=== PATIENT | male | born 1960 | race Caucasian/White ===

== ENCOUNTER 2017-05-22 11:44 | Emergency (ER) | payer MEDICARE ==
[~2017-05-22] VITALS: Ht 175.3 cm; Wt 66.0 kg
[2017-05-22 12:47] VITALS: BP 128/90
== END 2017-05-22 12:57 | disposition home or self-care (01) ==
LOC: EMS 11:46
DX: B35.3 Tinea pedis (principal); N32.81 Overactive bladder; F17.210 Nicotine dependence, cigarettes, uncomplicated; Z59.0 Homelessness
CPT/HCPCS: 99283

== ENCOUNTER 2017-05-22 15:06 | Inpatient (IN) | payer MEDICARE ==
[~2017-05-22] VITALS: Ht 182.9 cm; Wt 65.1 kg
[2017-05-22 15:41] VITALS: BP 133/67
[2017-05-22] MEDS ORDERED: HALOPERIDOL 5 MG TABLET PO PRN (16:00)
[2017-05-22] MEDS ORDERED: ZOLPIDEM TARTRATE 10 MG TABLET PO PRN (16:00)
[2017-05-22] MEDS ORDERED: LORazepam 2 MG TABLET PO PRN (16:00)
[2017-05-22 17:19] VITALS: BP 129/83
[2017-05-22 17:58] VITALS: BP 129/83
[2017-05-22] MEDS ORDERED: ACETAMINOPHEN 325 MG TABLET PO PRN (19:15)
[2017-05-22] MEDS ORDERED: BACITRACIN 28.4 GM OINTMENT TP PRN (19:15)
[2017-05-22] MEDS ORDERED: IBUPROFEN 600 MG TABLET PO PRN (19:15)
[2017-05-22] MEDS ORDERED: HYDROCORTISONE 2.5% 30 GM CREAM TP PRN (19:15)
[2017-05-23 02:21] VITALS: BP 139/68
[2017-05-23 08:37] VITALS: BP 130/75
[2017-05-23 08:54] LABS: BASOPHILS # (AUTO) 0.03 K/uL (0.00-0.20); BASOPHILS % (AUTO) 0.3 % (0.0-2.0); EOSINOPHILS # (AUTO) 0.58 K/uL (0.00-0.70); EOSINOPHILS % (AUTO) 6.35 % (1.0-6.0); HEMATOCRIT 35.8 % (41-53); HEMOGLOBIN 11.9 g/dL (13.5-17.5); LYMPHOCYTES % (AUTO) 10.7 % (22.0-44.0); MEAN CORPUSCULAR HEMOGLOBIN 29.9 pg (26.0-34.0); MEAN CORPUSCULAR HGB CONC 33.1 G/dL (31.0-37.0); MEAN CORPUSCULAR VOLUME 90 fL (80-100); NEUTROPHILS # (AUTO) 6.6 K/uL (1.8-7.7); NEUTROPHILS % (AUTO) 71.7 % (40.0-70.0); PLATELET COUNT (AUTO) 241 K/uL (150-450); RED BLOOD CELL COUNT(AUTO) 3.97 MIL/uL (4.50-5.90); RED CELL DISTRIBUTION WIDTH 14.9 % (11.5-14.5)
[2017-05-23] MEDS ORDERED: PERMETHRIN 5% 60 GM CREAM TP ONE (09:00)
[2017-05-23 09:26] LABS: HEMOGLOBIN A1C 5.9 % (4.5-6.2)
[2017-05-23 09:41] LABS: ALANINE AMINOTRANSFERASE 15 U/L (12-78); ALKALINE PHOSPHATASE 65 U/L (46-116); ANION GAP 4 mmol/L (8-16); ASPARTATE AMINOTRANSFERASE 9 U/L (15-37); BILIRUBIN,TOTAL 0.2 mg/dL (0.1-1.0); CALCIUM, TOTAL 8.5 mg/dL (8.8-10.5); CARBON DIOXIDE 30 mmol/L (22-29); CHLORIDE 106 mmol/L (98-107); CHOL/HDL RATIO 2.9 (4.2-7.3); CHOLESTEROL 135 mg/dL (131-200); CREATININE 0.69 mg/dL (0.60-1.30); GLOMERULAR FILTR. RATE CALC > 60 mL/min (>60); GLUCOSE,RANDOM 103 mg/dL (70-110); HDL CHOLESTEROL 47 mg/dL (40-60); LDL CHOL (CALC.) 80 mg/dL (0-130); POTASSIUM 4.8 mmol/L (3.5-5.1); SODIUM SERUM 140 mmol/L (136-145); THYROID STIMULATING HORMONE 1.43 uIU/mL (0.36-3.74); TOTAL PROTEIN, SERUM 6.4 g/dL (6.4-8.2); TRIGLYCERIDES 42 mg/dL (15-150); UREA NITROGEN, BLOOD 20 mg/dL (7-18)
[2017-05-23] MEDS: CEPHALEXIN MONOHYDRATE 500 MG CAPSULE PO SCH ×3 (13:05→20:31)
[2017-05-23 16:08] VITALS: BP 124/68
[2017-05-23] MEDS: CLOTRIMAZOLE 1% 15 GM CREAM TP SCH (17:10)
[2017-05-24 01:27] VITALS: BP 121/68
[2017-05-24 08:20] VITALS: BP 121/84
[2017-05-24] MEDS: DULoxetine HCL 30 MG CAPSULE PO SCH ×2 (08:56→16:43)
[2017-05-24] MEDS: CEPHALEXIN MONOHYDRATE 500 MG CAPSULE PO SCH ×4 (08:56→20:25)
[2017-05-24] MEDS: CLOTRIMAZOLE 1% 15 GM CREAM TP SCH ×2 (08:57→17:03)
[2017-05-24 09:29] LABS: CREATINE KINASE, TOTAL 41 U/L (39-308); THYROID STIMULATING HORMONE 3.02 uIU/mL (0.36-3.74)
[2017-05-24 10:52] LABS: FOLATE SERUM 15.8 ng/mL (5.4-)
[2017-05-24 16:02] VITALS: BP 141/74
[2017-05-25 05:29] VITALS: BP 125/63
[2017-05-25 08:06] VITALS: BP 114/66
[2017-05-25] MEDS: CLOTRIMAZOLE 1% 15 GM CREAM TP SCH ×2 (08:43→16:12)
[2017-05-25] MEDS: CEPHALEXIN MONOHYDRATE 500 MG CAPSULE PO SCH ×4 (08:43→20:27)
[2017-05-25] MEDS: DULoxetine HCL 30 MG CAPSULE PO SCH ×2 (08:43→16:11)
[2017-05-25 16:04] VITALS: BP 120/67
[2017-05-26 06:14] VITALS: BP 136/66
[2017-05-26 08:19] VITALS: BP 109/72
[2017-05-26] MEDS: DULoxetine HCL 30 MG CAPSULE PO SCH ×2 (08:35→16:34)
[2017-05-26] MEDS: CLOTRIMAZOLE 1% 15 GM CREAM TP SCH ×2 (08:36→16:34)
[2017-05-26] MEDS: CEPHALEXIN MONOHYDRATE 500 MG CAPSULE PO SCH ×4 (08:36→20:58)
[2017-05-26 16:00] VITALS: BP 125/62
[2017-05-27 06:07] VITALS: BP 124/81
[2017-05-27 08:06] VITALS: BP 116/62
[2017-05-27] MEDS: DULoxetine HCL 30 MG CAPSULE PO SCH (08:21)
[2017-05-27] MEDS: CEPHALEXIN MONOHYDRATE 500 MG CAPSULE PO SCH ×2 (08:21→13:07)
[2017-05-27] MEDS: CLOTRIMAZOLE 1% 15 GM CREAM TP SCH (08:22)
[2017-05-27] MEDS ORDERED: DULO30CA2 PO (09:59)
[2017-05-27] MEDS ORDERED: CEPH500 PO (10:01)
== END 2017-05-27 14:30 | disposition home health service (06) | DRG 885 ==
LOC: B2X 16:02
PROVIDERS: ADMIT Psychiatry & Neurology Psychiatry; ATTEND Psychiatry & Neurology Psychiatry
DX: F33.2 Major depressive disorder, recurrent severe without psychotic features (principal); R45.851 Suicidal ideations; I10 Essential (primary) hypertension; D64.9 Anemia, unspecified; B35.3 Tinea pedis; L30.9 Dermatitis, unspecified; J44.9 Chronic obstructive pulmonary disease, unspecified; Z59.0 Homelessness
CPT/HCPCS: 80074; 82306; 82607; 82746; 83036; 83735; 84439; 84443; 87081